=== PATIENT | female | born 1955 | race Two or more races ===

== ENCOUNTER 2022-04-06 11:17 | Emergency (ER) | payer MEDICAID ==
[~2022-04-06] VITALS: Ht 160 cm; Wt 54.4 kg
[2022-04-06 11:25] VITALS: BP 114/74
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
--- NOTE | 2022-04-06 11:36 | NUR ---
MD MENDOZA AT BEDSIDE TO EVALUATE AND ASSESS PT
[2022-04-06] MEDS ORDERED: NAPR-1009 PO (11:45)
[2022-04-06] MEDS ORDERED: ACETAMINOPHEN 650 MG/20.3 ML UDC ONE (11:52)
[2022-04-06] MEDS ORDERED: KETOROLAC TROMETHAMINE 15 MG/ML VIAL ONE (11:52)
[2022-04-06] MEDS ORDERED: ACETAMINOPHEN 325 MG TABLET ONE (11:53)
[2022-04-06] MEDS ORDERED: KETOROLAC TROMETHAMINE INJ 30 MG/ML VIAL IM ONE (12:00)
[2022-04-06] MEDS ORDERED: ACETAMINOPHEN 325 MG TABLET PO ONE (12:00)
--- NOTE | 2022-04-06 12:30 | NUR ---
Patient discharged to home in stable condition. Written and verbal after care instructions given. Patient verbalizes understanding of instruction.
== END 2022-04-06 13:47 | disposition home or self-care (01) ==
LOC: ER 11:20
DX: S83.91XA Sprain of unspecified site of right knee, initial encounter (principal); S83.92XA Sprain of unspecified site of left knee, initial encounter; S30.0XXA Contusion of lower back and pelvis, initial encounter; Z79.1 Long term (current) use of non-steroidal anti-inflammatories (NSAID); W18.30XA Fall on same level, unspecified, initial encounter; Y93.89 Activity, other specified; Y92.89 Other specified places as the place of occurrence of the external cause; Y99.8 Other external cause status
CPT/HCPCS: 99284; 96372; 72170; 73564 ×2; J1885